=== PATIENT | female | born 1990 | race Caucasian/White ===

== ENCOUNTER 2018-09-12 15:26 | Emergency (ER) | payer SELFPAY ==
[2018-09-12] MEDS ORDERED: diphenhydrAMINE 50 MG/ML SDV IVPUSH ONE (15:28)
[2018-09-12] MEDS ORDERED: Sodium Chloride 0.9% 2.5 ML Syringe FLUSH PRN (15:28)
[2018-09-12] MEDS ORDERED: methylPREDNISolone Sodium Succinate 125 MG/2 ML SDV IVPUSH ONE (15:28)
[2018-09-12] MEDS ORDERED: Sodium Chloride 0.9% 10 ML Syringe FLUSH PRN (15:28)
[2018-09-12] MEDS ORDERED: EPINEPHrine 1 MG/ML SDV IM ONE (15:28)
[2018-09-12] MEDS ORDERED: Sodium Chloride 0.9% 1,000 ML IV ONE (15:28)
[2018-09-12] MEDS ORDERED: Famotidine 20 MG/2 ML SDV IVPUSH ONE (15:28)
--- NOTE | 2018-09-12 15:42 | EDM.PDOC ---
ED HPI GENERAL MEDICAL PROBLEM - General Chief Complaint: Allergic Reaction Stated Complaint: ALLERGIC REACTION Time Seen by Provider: 09/12/18 15:27 Source of Information: Reports: Patient History Limitations: Reports: No Limitations - History of Present Illness INITIAL COMMENTS - FREE TEXT/NARRATIVE: History of present illness: []Patient accidentally ate a cookie with peanuts in it and she is allergic to peanuts. She arrives with complaint of throat swelling and difficulty swallowing. She has no shortness of breath. Patient denies any rashes, nausea, vomiting or abdominal pain. Review of systems: As per history of present illness and below otherwise all systems reviewed and negative. Past medical history: As per history of present illness and as reviewed below otherwise noncontributory. Surgical history: As per history of present illness and as reviewed below otherwise noncontributory. Social history: No reported history of drug or alcohol abuse. Family history: As per history of present illness and as reviewed below otherwise noncontributory. Physical exam: General: Well developed, well nourished in NAD HEENT: Atraumatic, normocephalic, pupils reactive, negative for conjunctival pallor or scleral icterus, mucous membranes moist, throat clear, neck supple, nontender, trachea midline. Mild edema posterior pharynx no stridor Lungs: Clear to auscultation, breath sounds equal bilaterally, chest nontender. Seeing Heart: S1S2, regular, negative for clicks, rubs, or JVD. Abdomen: NABS, Soft, nondistended, nontender. Negative for masses or hepatosplenomegaly. Negative for costovertebral tenderness. Pelvis: Stable nontender. Genitourinary: Deferred. Rectal: Deferred. Extremities: Atraumatic, negative for cords or calf pain. Neurovascular unremarkable. Neuro: Awake, alert, oriented. Cranial nerves II through XII unremarkable. Cerebellum unremarkable. Motor and sensory unremarkable throughout. Exam nonfocal. Skin:warm and dry no urticaria Diagnostics: None Therapeutics: Epinephrine, Benadryl, Solu-Medrol, Pepcid, IV saline ED Course: Improved Impression: Anaphylactic reaction to peanuts Prescriptions: EpiPen Plan: Take meds as directed, follow up with your primary care physician, return to ER if symptoms worsen or change. Definitive disposition and diagnosis as appropriate pending reevaluation and review of above. 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 ED EXAM GENERAL NO PERIP PULSE - Physical Exam Exam: See Below Course - Vital Signs Last Recorded V/S: Last Vital Signs Temp 98.2 F 09/12/18 15:36 Pulse 103 H 09/12/18 15:36 Resp 22 H 09/12/18 15:36 BP 177/95 H 09/12/18 15:36 Pulse Ox 100 09/12/18 15:36 - Orders/Labs/Meds Orders: Active Orders 24 hr Category Date Time Status Sodium Chloride 0.9% [Normal Saline] 1,000 ml Med 09/12/18 15:28 Active IV .Bolus Sodium Chloride 0.9% [Saline Flush] Med 09/12/18 15:28 Active 10 ml FLUSH ASDIRECTED PRN Sodium Chloride 0.9% [Saline Flush] Med 09/12/18 15:28 Active 2.5 ml FLUSH ASDIRECTED PRN Saline Lock Insert [OM.PC] Stat Oth 09/12/18 15:27 Ordered Medication Orders Sodium Chloride (Normal Saline) 1,000 mls @ 999 mls/hr IV .Bolus ONE Stop: 09/12/18 16:28 Last Admin: 09/12/18 15:59 Dose: 999 mls/hr Sodium Chloride (Saline Flush) 10 ml FLUSH ASDIRECTED PRN PRN Reason: Keep Vein Open Last Admin: 09/12/18 15:59 Dose: 10 ml Sodium Chloride (Saline Flush) 2.5 ml FLUSH ASDIRECTED PRN PRN Reason: Keep Vein Open Last Admin: 09/12/18 15:59 Dose: 2.5 ml Meds: Medications Generic Name Dose Route Start Last Admin Trade Name Freq PRN Reason Stop Dose Admin Sodium Chloride 1,000 mls @ 999 mls/hr 09/12/18 15:28 09/12/18 15:59 Normal Saline IV 09/12/18 16:28 999 mls/hr .Bolus ONE Administration Sodium Chloride 10 ml 09/12/18 15:28 09/12/18 15:59 Saline Flush FLUSH 10 ml ASDIRECTED PRN Administration Keep Vein Open Sodium Chloride 2.5 ml 09/12/18 15:28 09/12/18 15:59 Saline Flush FLUSH 2.5 ml ASDIRECTED PRN Administration Keep Vein Open Discontinued Medications Generic Name Dose Route Start Last Admin Trade Name Freq PRN Reason Stop Dose Admin Diphenhydramine HCl 25 mg 09/12/18 15:28 09/12/18 15:59 Benadryl IVPUSH 09/12/18 15:29 25 mg ONETIME ONE Administration Famotidine 20 mg 09/12/18 15:28 09/12/18 15:59 Pepcid IVPUSH 09/12/18 15:29 20 mg ONETIME ONE Administration Methylprednisolone Sodium Succinate 125 mg 09/12/18 15:28 09/12/18 15:59 Solu-Medrol IVPUSH 09/12/18 15:29 125 mg ONETIME ONE Administration Ondansetron HCl 4 mg 09/12/18 15:54 09/12/18 15:59 Zofran IVPUSH 09/12/18 15:55 4 mg ONETIME ONE Administration Departure - Departure Time of Disposition: 16:27 Disposition: Home, Self-Care 01 Condition: Good Clinical Impression: Anaphylaxis due to peanuts Qualifiers: Encounter type: initial encounter Qualified Code(s): T78.01XA - Anaphylactic reaction due to peanuts, initial encounter - Discharge Information *PRESCRIPTION DRUG MONITORING PROGRAM REVIEWED*: No *COPY OF PRESCRIPTION DRUG MONITORING REPORT IN PATIENT JANES: No Referrals: PCP,None [Primary Care Provider] - Additional Instructions: The following information is given to patients seen in the emergency department who are being discharged to home. This information is to outline your options for follow-up care. We provide all patients seen in our emergency department with a follow-up referral. The need for follow-up, as well as the timing and circumstances, are variable depending upon the specifics of your emergency department visit. If you don't have a primary care physician on staff, we will provide you with a referral. We always advise you to contact your personal physician following an emergency department visit to inform them of the circumstance of the visit and for follow-up with them and/or the need for any referrals to a consulting specialist. The emergency department will also refer you to a specialist when appropriate. This referral assures that you have the opportunity for follow-up care with a specialist. All of these measure are taken in an effort to provide you with optimal care, which includes your follow-up. Under all circumstances we always encourage you to contact your private physician who remains a resource for coordinating your care. When calling for follow-up care, please make the office aware that this follow-up is from your recent emergency room visit. If for any reason you are refused follow-up, please contact the [facility] Emergency Department at and asked to speak to the emergency department charge nurse. Take meds as directed, follow up with your primary care physician, return to ER if symptoms worsen or change. [facility] [address] [place] [id number] - My Orders Last 24 Hours: My Active Orders 09/12/18 15:27 Saline Lock Insert [OM.PC] Stat 09/12/18 15:28 Sodium Chloride 0.9% [Normal Saline] 1,000 ml IV .Bolus Sodium Chloride 0.9% [Saline Flush] 10 ml FLUSH ASDIRECTED PRN Sodium Chloride 0.9% [Saline Flush] 2.5 ml FLUSH ASDIRECTED PRN - Assessment/Plan Last 24 Hours: My Active Orders 09/12/18 15:27 Saline Lock Insert [OM.PC] Stat 09/12/18 15:28 Sodium Chloride 0.9% [Normal Saline] 1,000 ml IV .Bolus Sodium Chloride 0.9% [Saline Flush] 10 ml FLUSH ASDIRECTED PRN Sodium Chloride 0.9% [Saline Flush] 2.5 ml FLUSH ASDIRECTED PRN
[2018-09-12] MEDS ORDERED: Ondansetron 4 MG/2 ML SDV IVPUSH ONE (15:54)
[2018-09-12 19:17] VITALS: BP 160/101
== END 2018-09-12 16:42 | disposition home or self-care (01) ==
LOC: MW.ED 15:26
DX: T78.01XA Anaphylactic reaction due to peanuts, initial encounter (principal); Z88.2 Allergy status to sulfonamides; Z91.010 Allergy to peanuts; Z88.1 Allergy status to other antibiotic agents
CPT/HCPCS: 96361; 96372; 96374; 96375; 99284; J0171; J1200; J2405; J2930; J3490; J7040

== ENCOUNTER 2022-06-09 10:20 | Emergency (ER) | payer SELFPAY ==
[2022-06-09] MEDS ORDERED: Lactated Ringers 1,000 ML IV ONE (10:39)
[2022-06-09] MEDS ORDERED: Acetaminophen 325 MG Tab PO ONE (10:39)
[2022-06-09] MEDS ORDERED: Dexamethasone 10 MG/ML SDV PO ONE (10:39)
[2022-06-09] MEDS ORDERED: Prochlorperazine 10 MG/2 ML SDV IVPUSH ONE (10:39)
[2022-06-09] MEDS ORDERED: Ketorolac 30 MG/ML SDV IVPUSH ONE (10:39)
[2022-06-09] MEDS ORDERED: diphenhydrAMINE 50 MG/ML SDV IVPUSH ONE (10:40)
[2022-06-09 11:21] LABS: POTASSIUM,K 3.8 mmol/L (3.5-5.1)
[2022-06-09 12:33] VITALS: BP 138/90; PULSE 70
== END 2022-06-09 12:33 | disposition home or self-care (01) ==
LOC: MW.ED 10:20
DX: R51.9 Headache, unspecified (principal); I10 Essential (primary) hypertension; Z88.2 Allergy status to sulfonamides; Z91.010 Allergy to peanuts; Z90.49 Acquired absence of other specified parts of digestive tract
CPT/HCPCS: 36415; 80053; 96361; 96374; 96375; 99284; A9270; J0780; J1200; J1885; J7120; J8540

== ENCOUNTER 2022-11-26 14:51 | Emergency (ER) | payer BC ==
[2022-11-26] MEDS ORDERED: methylPREDNISolone Sodium Succinate 125 MG/2 ML SDV IVPUSH ONE (14:57)
[2022-11-26] MEDS ORDERED: Sodium Chloride 0.9% 2.5 ML Syringe FLUSH PRN (14:57)
[2022-11-26] MEDS ORDERED: Famotidine 20 MG/2 ML SDV IVPUSH ONE (14:57)
[2022-11-26] MEDS ORDERED: diphenhydrAMINE 50 MG/ML SDV IVPUSH ONE (14:57)
[2022-11-26] MEDS ORDERED: Sodium Chloride 0.9% 10 ML Syringe FLUSH PRN (14:57)
[2022-11-26] MEDS ORDERED: Sodium Chloride 0.9% 1,000 ML IV ONE (14:57)
[2022-11-26] MEDS ORDERED: EPINEPHrine 1 MG/1 ML Amp IM ONE (14:58)
[2022-11-26 15:14] LABS: BASOPHILS PERCENT AUTO 0.2 % (0.0-1.5); EOSINOPHILS ABSOLUTE AUTO 0.1 K/uL (0.0-0.7); HEMATOCRIT 40.3 % (36.0-46.0); HEMOGLOBIN 13.3 g/dL (12.0-16.0); LYMPHOCYTES ABSOLUTE AUTO 2.9 K/uL (0.6-2.4); LYMPHOCYTES PERCENT AUTO 26.1 % (16.0-40.0); MEAN CORPUSCULAR HEMOGLOBIN 29.2 pg (27.0-32.0); MEAN CORPUSCULAR VOLUME 88.6 fL (80.0-98.0); MONOCYTES ABSOLUTE AUTO 0.8 K/uL (0.0-0.8); MONOCYTES PERCENT AUTO 7.1 % (0.0-15.0); NEUTROPHILS ABSOLUTE AUTO 7.4 K/uL (1.4-5.7); NEUTROPHILS PERCENT AUTO 65.6 % (48.0-80.0); NRBC ABSOLUTE 0 K/uL; PLATELET COUNT,PLT 387 K/uL (150-400); RED BLOOD CELL COUNT 4.55 M/uL (4.30-5.90); WHITE BLOOD CELL COUNT,WBC 11.28 K/uL (4.0-11.0)
[2022-11-26 15:26] LABS: BLOOD UREA NITROGEN,BUN 10 mg/dL (7.0-18.0); CALCIUM 8.7 mg/dL (8.5-10.1); CHLORIDE,CL 101 mmol/L (98-107); CREATININE 0.8 mg/dL (0.6-1.0); GLUCOSE RANDOM 103 mg/dL (74-106); POTASSIUM,K 3.1 mmol/L (3.5-5.1); SODIUM,NA 140 mmol/L (136-145)
[2022-11-26 15:42] LABS: ESTIMATED GFR 100 mL/min (>60)
[2022-11-26 17:12] VITALS: BP 175/102; PULSE 95
== END 2022-11-26 18:25 | disposition home or self-care (01) ==
LOC: MW.ED 14:51
DX: T78.01XA Anaphylactic reaction due to peanuts, initial encounter (principal); I10 Essential (primary) hypertension; Z88.2 Allergy status to sulfonamides; Z79.899 Other long term (current) drug therapy
CPT/HCPCS: 36415; 80048; 85025; 96361; 96372; 96374; 96375; 99285; J0171; J1200; J2930; J3490; J7030